=== PATIENT | male | born 1955 | race Caucasian/White ===

== ENCOUNTER 2019-04-25 19:17 | Inpatient (IN) | payer OTHER ==
[~2019-04-25] VITALS: Ht 154.9 cm; Wt 95.0 kg
[~2019-04-25 19:17] MED LIST: BP MEDS; DIAZ5TAB4 PO; FAMO-136 PO; OXYC-530 PO
[2019-04-25] MEDS ORDERED: IBUP100O27 PO (19:45)
[2019-04-25] MEDS ORDERED: LOSA50TA64 PO (19:45)
[2019-04-25] MEDS ORDERED: FAMO40TA76 PO (19:45)
[2019-04-25] MEDS ORDERED: SENN-106 PO (19:45)
[2019-04-25] MEDS ORDERED: BACL10TA PO (19:45)
[2019-04-25] MEDS ORDERED: TAMS-13 PO (19:45)
[2019-04-25 21:33] LABS: HEMATOCRIT 40.2 % (41-53); HEMOGLOBIN 13.8 g/dL (13.5-17.5); MEAN CORPUSCULAR HGB CONC 34.3 G/dL (31.0-37.0); MEAN CORPUSCULAR VOLUME 96 fL (80-100); PLATELET COUNT (AUTO) 166 K/uL (150-450); RED BLOOD CELL COUNT(AUTO) 4.18 MIL/uL (4.50-5.90)
[2019-04-25 21:45] LABS: CALCIUM, TOTAL 9.1 mg/dL (8.8-10.5); CREATININE 2.6 mg/dL (0.60-1.30); POTASSIUM 4.1 mmol/L (3.5-5.1)
[2019-04-25 22:09] LABS: ALBUMIN 2.2 g/dL (3.4-5.0); BILIRUBIN,TOTAL 1.3 mg/dL (0.1-1.0); TOTAL PROTEIN, SERUM 7.4 g/dL (6.4-8.2)
[2019-04-25 22:13] LABS: BAND NEUTROPHILS % (MANUAL) 31 % (0-5); LYMPHOCYTES % (MANUAL) 4 % (22-44); MONOCYTES % (MANUAL) 8 % (2-9); SEGMENTED NEUTROPHILS % 57 % (40-70)
[2019-04-25 22:25] LABS: INR 1.1 (0.9-1.1); PROTHROMBIN TIME 11.2 SEC (9.4-11.6)
[2019-04-25] MEDS ORDERED: PIPERACILLIN/TAZO 3.375 GM/D5W 50 ML IV ONE (22:30)
[2019-04-25] MEDS ORDERED: VANCOMYCIN HCL 1 GM/D5% WATER 200 ML IV ONE (22:30)
[2019-04-25 22:41] LABS: APPEARANCE,URINE CLOUDY (CLEAR); GLUCOSE, URINE (UA) NEGATIVE (NEGATIVE); KETONES,URINE NEGATIVE (NEGATIVE); LEUKOCYTE ESTERASE ,URINE NEGATIVE (NEGATIVE); NITRATE,URINE NEGATIVE (NEGATIVE); OCCULT BLOOD,URINE MODERATE (NEGATIVE); PH,URINE 5.5 (5.0-8.0); PROTEIN,URINE TRACE (NEGATIVE)
[2019-04-25 22:42] LABS: BILIRUBIN,URINE PRELIM. POSITIVE (NEGATIVE)
[2019-04-25 22:47] LABS: BACTERIA,URINE None Seen /HPF (None Seen); RBC,URINE 0-2 /HPF (0-2); SQUAMOUS EPITHELIAL CELL,UR Few /LPF (None Seen); WBC,URINE 0-2 /HPF (0-5)
[2019-04-25 22:49] LABS: RENAL EPITHELIAL CELLS,URINE Few /LPF (None Seen)
[2019-04-25] MEDS ORDERED: SODIUM CHLORIDE 0.9% 1,000 ML IV ONE (23:00)
[2019-04-25 23:01] LABS: AMPHET/METH SCREEN,URINE NEGATIVE (NEGATIVE); BARBITURATE SCREEN, URINE NEGATIVE (NEGATIVE); BENZODIAZEPINES SCREEN,URINE NEGATIVE (NEGATIVE); CANNABINOID SCREEN,URINE NEGATIVE (NEGATIVE); COCAINE SCREEN,URINE NEGATIVE (NEGATIVE); METHADONE SCREEN, URINE NEGATIVE (NEGATIVE); OPIATE SCREEN,URINE NEGATIVE (NEGATIVE)
[2019-04-25 23:02] LABS: PHENCYCLIDINE SCREEN,URINE NEGATIVE (NEGATIVE)
[2019-04-25] MEDS ORDERED: ONDANSETRON HCL 4 MG/2 ML VIAL IVP PRN (23:45)
[2019-04-25] MEDS ORDERED: BISACODYL 10 MG RECTAL RECTAL SUPPOSITORY PR PRN (23:45)
[2019-04-26] MEDS ORDERED: SODIUM CHLORIDE 0.45% 1,000 ML IV SCH
[2019-04-26 00:05] LABS: INFLUENZA TYPE A NEGATIVE FOR TYPE A (NEGATIVE); INFLUENZA TYPE B NEGATIVE FOR TYPE B (NEGATIVE)
[2019-04-26] MEDS ORDERED: VANCOMYCIN HCL 1 GM/D5% WATER 200 ML IV PRN (01:45)
[2019-04-26] MEDS ORDERED: VANCOMYCIN HCL 1 GM/D5% WATER 200 ML IV ONE (02:30)
[2019-04-26] MEDS ORDERED: SODIUM CHLORIDE 0.9% 0 ML IV ONE (02:55)
[2019-04-26 03:08] VITALS: BP 135/79
[2019-04-26] MEDS: PIPERACILLIN SODIUM/TAZOBACTAM 2.25 GM in DEXTROSE 5%-WATER 50 ML IV SCH ×3 (05:49→18:28)
[2019-04-26 07:04] LABS: CALCIUM, TOTAL 8.4 mg/dL (8.8-10.5); CREATININE 2.2 mg/dL (0.60-1.30); POTASSIUM 3.3 mmol/L (3.5-5.1)
[2019-04-26 08:13] VITALS: BP 106/62
[2019-04-26] MEDS: DOCUSATE SODIUM 100 MG CAPSULE PO SCH ×2 (09:40→20:45)
[2019-04-26] MEDS: FAMOTIDINE 20 MG TABLET PO SCH (09:40)
[2019-04-26] MEDS: HEPARIN SODIUM,PORCINE 5,000 UNITS/ML VIAL SQ SCH ×2 (09:40→20:45)
[2019-04-26] MEDS ORDERED: SODIUM CHLORIDE 0.45% 1,000 ML IV ONE (09:45)
[2019-04-26] MEDS ORDERED: POTASSIUM CHLORIDE 10% 40 MEQ/30 ML LIQUID UDCUP PO ONE (09:45)
[2019-04-26 11:29] VITALS: BP 130/73
[2019-04-26 15:20] VITALS: BP 139/70
[2019-04-26] MEDS: ACETAMINOPHEN 325 MG TABLET PO PRN (16:59)
[2019-04-26 19:13] VITALS: BP 124/72
[2019-04-27] VITALS (7 sets, daily range): BP systolic 116–144; BP diastolic 70–98
[2019-04-27] MEDS: ACETAMINOPHEN 325 MG TABLET PO PRN ×4 (00:03→20:16)
[2019-04-27] MEDS: PIPERACILLIN SODIUM/TAZOBACTAM 2.25 GM in DEXTROSE 5%-WATER 50 ML IV SCH ×2 (00:34→05:38)
[2019-04-27] MEDS ORDERED: SODIUM CHLORIDE 0.9% 250 ML IV ONE (04:41)
[2019-04-27 07:08] LABS: HEMATOCRIT 37.7 % (41-53); HEMOGLOBIN 12.9 g/dL (13.5-17.5); MEAN CORPUSCULAR HEMOGLOBIN 32.9 pg (26.0-34.0); MEAN CORPUSCULAR HGB CONC 34.1 G/dL (31.0-37.0); MEAN CORPUSCULAR VOLUME 97 fL (80-100); PLATELET COUNT (AUTO) 174 K/uL (150-450); RED BLOOD CELL COUNT(AUTO) 3.91 MIL/uL (4.50-5.90); RED CELL DISTRIBUTION WIDTH 13.9 % (11.5-14.5)
[2019-04-27 07:14] LABS: CALCIUM, TOTAL 8.4 mg/dL (8.8-10.5); CREATININE 1.81 mg/dL (0.60-1.30); POTASSIUM 4.3 mmol/L (3.5-5.1)
[2019-04-27] MEDS: VANCOMYCIN HCL 1.25 GM in DEXTROSE 5%-WATER 250 ML IV SCH (08:14)
[2019-04-27] MEDS: FAMOTIDINE 20 MG TABLET PO SCH (08:15)
[2019-04-27] MEDS: HEPARIN SODIUM,PORCINE 5,000 UNITS/ML VIAL SQ SCH ×2 (08:15→20:15)
[2019-04-27] MEDS: DOCUSATE SODIUM 100 MG CAPSULE PO SCH ×2 (08:15→20:15)
[2019-04-27 08:40] LABS: BAND NEUTROPHILS % (MANUAL) 15 % (0-5); LYMPHOCYTES % (MANUAL) 13 % (22-44); MONOCYTES % (MANUAL) 6 % (2-9); SEGMENTED NEUTROPHILS % 66 % (40-70)
[2019-04-27] MEDS ORDERED: DEXTROSE 5%-WATER 500 ML IV ONE (10:15)
[2019-04-27] MEDS: PIPERACILLIN/TAZO 3.375 GM/D5W 50 ML IV SCH ×2 (13:19→18:25)
[2019-04-28] MEDS: PIPERACILLIN/TAZO 3.375 GM/D5W 50 ML IV SCH ×5 (01:06→18:00)
[2019-04-28 05:12] VITALS: BP 150/90
[2019-04-28 07:53] LABS: CALCIUM, TOTAL 7.8 mg/dL (8.8-10.5); CREATININE 1.45 mg/dL (0.60-1.30); POTASSIUM 3.5 mmol/L (3.5-5.1)
[2019-04-28 07:54] LABS: VANCOMYCIN,RANDOM 8.6 mcg/mL (25.0-50.0)
[2019-04-28 08:06] VITALS: BP 145/105
[2019-04-28] MEDS: VANCOMYCIN HCL 1.25 GM in DEXTROSE 5%-WATER 250 ML IV SCH (09:29)
[2019-04-28] MEDS: HEPARIN SODIUM,PORCINE 5,000 UNITS/ML VIAL SQ SCH ×2 (09:29→22:09)
[2019-04-28] MEDS: FAMOTIDINE 20 MG TABLET PO SCH (09:29)
[2019-04-28] MEDS: DOCUSATE SODIUM 100 MG CAPSULE PO SCH ×2 (09:29→21:00)
[2019-04-28] MEDS ORDERED: BARIUM SULFATE 0.1% SUSPENSION 450 ML BOTTLE ONE (11:41)
[2019-04-28 11:48] VITALS: BP 125/76
[2019-04-28] MEDS ORDERED: SODIUM CHLORIDE 0.9% 100 ML ONE (14:23)
[2019-04-28] MEDS ORDERED: IOVERSOL 350 MG/ML 150 ML VIAL ONE (14:23)
[2019-04-28] MEDS: DOXYCYCLINE HYCLATE 100 MG in DEXTROSE 5%-WATER 100 ML IV SCH (16:30)
[2019-04-28 16:33] VITALS: BP 146/60
[2019-04-28 20:13] VITALS: BP 153/86
[2019-04-28] MEDS: VANCOMYCIN HCL 1 GM/D5% WATER 200 ML IV SCH (21:41)
[2019-04-28] MEDS: ACETAMINOPHEN 325 MG TABLET PO PRN (22:09)
[2019-04-29 00:01] VITALS: BP 138/82
[2019-04-29] MEDS: PIPERACILLIN/TAZO 3.375 GM/D5W 50 ML IV SCH ×5 (01:05→23:28)
[2019-04-29 04:30] VITALS: BP 121/71
[2019-04-29] MEDS: DOXYCYCLINE HYCLATE 100 MG in DEXTROSE 5%-WATER 100 ML IV SCH (04:58)
[2019-04-29 07:35] VITALS: BP 154/78
[2019-04-29] MEDS: VANCOMYCIN HCL 1 GM/D5% WATER 200 ML IV SCH (07:45)
[2019-04-29 08:09] LABS: ALBUMIN 1.5 g/dL (3.4-5.0); BILIRUBIN,TOTAL 1.6 mg/dL (0.1-1.0); CALCIUM, TOTAL 7.7 mg/dL (8.8-10.5); CREATININE 1.32 mg/dL (0.60-1.30); POTASSIUM 4.3 mmol/L (3.5-5.1); TOTAL PROTEIN, SERUM 7.2 g/dL (6.4-8.2)
[2019-04-29] MEDS: DOCUSATE SODIUM 100 MG CAPSULE PO SCH ×2 (08:15→21:00)
[2019-04-29] MEDS: FAMOTIDINE 20 MG TABLET PO SCH (08:15)
[2019-04-29] MEDS: HEPARIN SODIUM,PORCINE 5,000 UNITS/ML VIAL SQ SCH ×2 (08:17→21:00)
[2019-04-29] MEDS ORDERED: SODIUM CHLORIDE 0.9% 500 ML IV ONE (10:31)
[2019-04-29] MEDS: ACETAMINOPHEN 325 MG TABLET PO PRN (11:25)
[2019-04-29 12:15] VITALS: BP 139/56
[2019-04-29 15:45] VITALS: BP 128/72
[2019-04-29] MEDS: MetroNIDAZOLE 500 MG TABLET PO SCH (16:09)
[2019-04-29 20:28] VITALS: BP 117/71
[2019-04-30 04:15] VITALS: BP 138/79
[2019-04-30] MEDS: ACETAMINOPHEN 325 MG TABLET PO PRN ×4 (04:31→19:53)
[2019-04-30] MEDS: PIPERACILLIN/TAZO 3.375 GM/D5W 50 ML IV SCH ×3 (05:26→17:41)
[2019-04-30 07:43] VITALS: BP 135/73
[2019-04-30 07:58] LABS: BASOPHILS % (AUTO) 0.2 % (0.0-2.0); EOSINOPHILS % (AUTO) 0.8 % (1.0-6.0); HEMATOCRIT 34.2 % (41-53); HEMOGLOBIN 11.6 g/dL (13.5-17.5); LYMPHOCYTES # (AUTO) 1.4 K/uL (1.0-4.8); LYMPHOCYTES % (AUTO) 7.9 % (22.0-44.0); MEAN CORPUSCULAR HEMOGLOBIN 32.7 pg (26.0-34.0); MEAN CORPUSCULAR VOLUME 96 fL (80-100); MONOCYTES # (AUTO) 1.3 K/uL (0.1-1.0); NEUTROPHILS # (AUTO) 15.2 K/uL (1.8-7.7); NEUTROPHILS % (AUTO) 84.1 % (40.0-70.0); PLATELET COUNT (AUTO) 155 K/uL (150-450); RED BLOOD CELL COUNT(AUTO) 3.56 MIL/uL (4.50-5.90); RED CELL DISTRIBUTION WIDTH 13.7 % (11.5-14.5)
[2019-04-30 08:01] LABS: CALCIUM, TOTAL 7.1 mg/dL (8.8-10.5); CREATININE 1.3 mg/dL (0.60-1.30); POTASSIUM 4.1 mmol/L (3.5-5.1)
[2019-04-30] MEDS: MetroNIDAZOLE 500 MG TABLET PO SCH ×4 (08:44→20:46)
[2019-04-30] MEDS: FAMOTIDINE 20 MG TABLET PO SCH (08:44)
[2019-04-30] MEDS: DOCUSATE SODIUM 100 MG CAPSULE PO SCH ×2 (08:44→20:46)
[2019-04-30] MEDS: HEPARIN SODIUM,PORCINE 5,000 UNITS/ML VIAL SQ SCH ×3 (08:45→21:00)
[2019-04-30 11:38] VITALS: BP 143/88
[2019-04-30 15:23] VITALS: BP 142/68
[2019-04-30 19:40] VITALS: BP 138/72
[2019-04-30 23:36] VITALS: BP 131/77
[2019-05-01] MEDS: ACETAMINOPHEN 325 MG TABLET PO PRN ×2 (00:11→13:59)
[2019-05-01] MEDS: PIPERACILLIN/TAZO 3.375 GM/D5W 50 ML IV SCH ×5 (00:12→23:46)
[2019-05-01 04:40] VITALS: BP 141/71
[2019-05-01] MEDS: MORPHINE SULFATE 2 MG/ML SYRINGE IVP PRN ×4 (05:49→18:53)
[2019-05-01 07:51] VITALS: BP 126/71
[2019-05-01] MEDS: HEPARIN SODIUM,PORCINE 5,000 UNITS/ML VIAL SQ SCH ×2 (09:00→20:57)
[2019-05-01 09:27] LABS: BASOPHILS % (AUTO) 0.2 % (0.0-2.0); EOSINOPHILS % (AUTO) 0.8 % (1.0-6.0); HEMATOCRIT 36.2 % (41-53); HEMOGLOBIN 12.1 g/dL (13.5-17.5); LYMPHOCYTES # (AUTO) 1.3 K/uL (1.0-4.8); LYMPHOCYTES % (AUTO) 7.6 % (22.0-44.0); MEAN CORPUSCULAR HEMOGLOBIN 32.3 pg (26.0-34.0); MEAN CORPUSCULAR HGB CONC 33.4 G/dL (31.0-37.0); MEAN CORPUSCULAR VOLUME 97 fL (80-100); MONOCYTES # (AUTO) 1.2 K/uL (0.1-1.0); MONOCYTES % (AUTO) 6.5 % (2.0-9.0); NEUTROPHILS # (AUTO) 15.1 K/uL (1.8-7.7); NEUTROPHILS % (AUTO) 84.9 % (40.0-70.0); PLATELET COUNT (AUTO) 174 K/uL (150-450); RED BLOOD CELL COUNT(AUTO) 3.73 MIL/uL (4.50-5.90); RED CELL DISTRIBUTION WIDTH 13.8 % (11.5-14.5)
[2019-05-01 09:32] LABS: INR 1.1 (0.9-1.1); PROTHROMBIN TIME 11.6 SEC (9.4-11.6)
[2019-05-01] MEDS: DOCUSATE SODIUM 100 MG CAPSULE PO SCH ×2 (09:36→20:58)
[2019-05-01] MEDS: FAMOTIDINE 20 MG TABLET PO SCH (09:36)
[2019-05-01] MEDS: MetroNIDAZOLE 500 MG TABLET PO SCH ×3 (09:36→20:58)
[2019-05-01 09:40] LABS: ANION GAP 7 mmol/L (8-16); CALCIUM, TOTAL 7.8 mg/dL (8.8-10.5); CARBON DIOXIDE 29 mmol/L (22-29); CHLORIDE 107 mmol/L (98-107); CREATININE 1.16 mg/dL (0.60-1.30); GLOMERULAR FILTR. RATE CALC > 60 mL/min (>60); GLUCOSE,RANDOM 94 mg/dL (70-110); POTASSIUM 4.4 mmol/L (3.5-5.1); SODIUM SERUM 143 mmol/L (136-145); UREA NITROGEN, BLOOD 19 mg/dL (7-18)
[2019-05-01 11:10] VITALS: BP 133/73
[2019-05-01 15:33] VITALS: BP 139/78
[2019-05-01 19:55] VITALS: BP 117/75
[2019-05-01] MEDS ORDERED: 0.9% SODIUM CHLORIDE 5 ML NEB SOLUTION NEB ONE (20:36)
[2019-05-01] MEDS: ALBUTEROL SULFATE 2.5 MG/0.5 ML NEB SOLUTION NEB PRN (20:37)
[2019-05-01] MEDS ORDERED: SODIUM CHLORIDE 0.9% 100 ML ONE (23:47)
[2019-05-02] VITALS (10 sets, daily range): BP systolic 119–141; BP diastolic 53–83
[2019-05-02] MEDS: ACETAMINOPHEN 325 MG TABLET PO PRN ×3 (00:20→15:49)
[2019-05-02 01:23] LABS: APPEARANCE,URINE CLEAR (CLEAR); GLUCOSE, URINE (UA) NEGATIVE (NEGATIVE); KETONES,URINE NEGATIVE (NEGATIVE); LEUKOCYTE ESTERASE ,URINE SMALL (NEGATIVE); NITRATE,URINE NEGATIVE (NEGATIVE); OCCULT BLOOD,URINE LARGE (NEGATIVE); PROTEIN,URINE TRACE (NEGATIVE)
[2019-05-02 01:27] LABS: BILIRUBIN,URINE PRELIM. POSITIVE (NEGATIVE)
[2019-05-02 01:32] LABS: BACTERIA,URINE None Seen /HPF (None Seen); RBC,URINE 51-100 /HPF (0-2); SQUAMOUS EPITHELIAL CELL,UR Rare /LPF (None Seen)
[2019-05-02] MEDS: MORPHINE SULFATE 2 MG/ML SYRINGE IVP PRN ×3 (02:47→21:23)
[2019-05-02] MEDS ORDERED: MORPHINE SULFATE 2 MG/ML SYRINGE IVP ONE (05:30)
[2019-05-02] MEDS: PIPERACILLIN/TAZO 3.375 GM/D5W 50 ML IV SCH ×3 (06:07→17:52)
[2019-05-02] MEDS: MetroNIDAZOLE 500 MG TABLET PO SCH ×3 (07:43→21:12)
[2019-05-02] MEDS: DOCUSATE SODIUM 100 MG CAPSULE PO SCH ×2 (07:43→21:13)
[2019-05-02] MEDS: HEPARIN SODIUM,PORCINE 5,000 UNITS/ML VIAL SQ SCH ×2 (07:43→21:13)
[2019-05-02] MEDS: FAMOTIDINE 20 MG TABLET PO SCH (07:43)
[2019-05-02] MEDS ORDERED: LIDOCAINE/PF 1% 30 ML VIAL ONE (09:04)
[2019-05-02] MEDS ORDERED: PROPOFOL 1000 MG/ISO-OSM 100 ML IV ONE (09:22)
[2019-05-02] MEDS ORDERED: RINGERS SOLUTION,LACTATED 1,000 ML IV ONE (09:37)
[2019-05-02] MEDS ORDERED: RINGERS SOLUTION,LACTATED 500 ML IV ONE (11:57)
[2019-05-02] MEDS ORDERED: 0.9% SODIUM CHLORIDE 5 ML NEB SOLUTION NEB ONE (14:41)
[2019-05-02] MEDS: ALBUTEROL SULFATE 2.5 MG/0.5 ML NEB SOLUTION NEB PRN (14:46)
[2019-05-02] MEDS: OxyCODONE HCL/ACETAMINOPHEN 5-325 MG TABLET PO PRN (14:58)
[2019-05-03] MEDS: PIPERACILLIN/TAZO 3.375 GM/D5W 50 ML IV SCH ×4 (00:07→18:13)
[2019-05-03] MEDS ORDERED: SODIUM CHLORIDE 0.9% 100 ML ONE (00:09)
[2019-05-03] MEDS: OxyCODONE HCL/ACETAMINOPHEN 5-325 MG TABLET PO PRN ×2 (03:53→18:13)
[2019-05-03 05:00] VITALS: BP 129/73
[2019-05-03] MEDS ORDERED: NEOSTIGMINE METHYLSULFATE 1 MG/ML 10 ML VIAL IVP ONE (05:32)
[2019-05-03] MEDS ORDERED: LIDOCAINE/PF 2% 5 ML VIAL IM ONE (05:32)
[2019-05-03] MEDS ORDERED: PROPOFOL 1% 20 ML VIAL IVP ONE (05:32)
[2019-05-03] MEDS ORDERED: ONDANSETRON HCL 4 MG/2 ML VIAL IVP ONE (05:32)
[2019-05-03] MEDS ORDERED: GLYCOPYRROLATE 0.2 MG/ML VIAL IM ONE (05:32)
[2019-05-03] MEDS ORDERED: KETAMINE HCL 50 MG/ML 10 ML VIAL IVP ONE (05:38)
[2019-05-03] MEDS ORDERED: FentaNYL CITRATE-PF 100 MCG/2 ML VIAL IVP ONE (05:38)
[2019-05-03] MEDS ORDERED: MIDAZOLAM HCL 2 MG/2 ML VIAL IVP ONE (05:38)
[2019-05-03 08:17] VITALS: BP 122/82
[2019-05-03] MEDS: MetroNIDAZOLE 500 MG TABLET PO SCH ×3 (08:51→20:42)
[2019-05-03] MEDS: HEPARIN SODIUM,PORCINE 5,000 UNITS/ML VIAL SQ SCH ×2 (08:51→20:42)
[2019-05-03] MEDS: DOCUSATE SODIUM 100 MG CAPSULE PO SCH ×2 (08:51→20:42)
[2019-05-03] MEDS: FAMOTIDINE 20 MG TABLET PO SCH (08:51)
[2019-05-03] MEDS: MORPHINE SULFATE 2 MG/ML SYRINGE IVP PRN (08:55)
[2019-05-03 11:02] VITALS: BP 135/73
[2019-05-03 13:07] LABS: LEGIONELLA PNEUMO AG URINE Negative (Negative); ORGANISM ID Not indicated.; S PNEUMO SOURCE Urine; STREP PNEUMONIAE AG URINE Negative (Negative); STREP.PNEUMO BODY FLUID CULT. Not Indicated
[2019-05-03 16:00] VITALS: BP 136/80
[2019-05-03 19:50] VITALS: BP 142/86
[2019-05-03 23:45] VITALS: BP 136/76
[2019-05-04] MEDS: PIPERACILLIN/TAZO 3.375 GM/D5W 50 ML IV SCH ×3 (00:13→12:24)
[2019-05-04 04:40] VITALS: BP 135/66
[2019-05-04 07:11] VITALS: BP 109/74
[2019-05-04] MEDS: HEPARIN SODIUM,PORCINE 5,000 UNITS/ML VIAL SQ SCH ×2 (08:37→21:55)
[2019-05-04] MEDS: FAMOTIDINE 20 MG TABLET PO SCH (08:38)
[2019-05-04] MEDS: MetroNIDAZOLE 500 MG TABLET PO SCH ×3 (08:38→21:55)
[2019-05-04] MEDS: DOCUSATE SODIUM 100 MG CAPSULE PO SCH ×2 (08:39→21:55)
[2019-05-04] MEDS: OxyCODONE HCL/ACETAMINOPHEN 5-325 MG TABLET PO PRN ×2 (08:39→17:49)
[2019-05-04 11:51] VITALS: BP 104/72
[2019-05-04 15:19] VITALS: BP 122/65
[2019-05-04] MEDS: CefTRIAXone SODIUM 2 GM in DEXTROSE 5%-WATER 50 ML IV SCH (17:47)
[2019-05-04] MEDS ORDERED: SODIUM CHLORIDE 0.9% 250 ML IV ONE (17:54)
[2019-05-04 19:55] VITALS: BP 118/63
[2019-05-05 02:06] VITALS: BP_SYST 124; BP_SYST 200; BP_DIAS 78
[2019-05-05 05:10] VITALS: BP 133/73
[2019-05-05 07:43] VITALS: BP 136/69
[2019-05-05] MEDS ORDERED: IOVERSOL 350 MG/ML 100 ML VIAL ONE (07:48)
[2019-05-05] MEDS ORDERED: SODIUM CHLORIDE 0.9% 100 ML ONE (07:48)
[2019-05-05] MEDS: DOCUSATE SODIUM 100 MG CAPSULE PO SCH ×2 (09:12→21:00)
[2019-05-05] MEDS: MetroNIDAZOLE 500 MG TABLET PO SCH ×3 (09:12→21:00)
[2019-05-05] MEDS: FAMOTIDINE 20 MG TABLET PO SCH (09:12)
[2019-05-05] MEDS: HEPARIN SODIUM,PORCINE 5,000 UNITS/ML VIAL SQ SCH ×2 (09:12→21:00)
[2019-05-05 11:41] VITALS: BP 129/67
[2019-05-05 16:11] VITALS: BP 145/65
[2019-05-05] MEDS: CefTRIAXone SODIUM 2 GM in DEXTROSE 5%-WATER 50 ML IV SCH (17:41)
[2019-05-05 19:56] VITALS: BP 132/65
[2019-05-06 00:03] VITALS: BP 148/85
[2019-05-06 05:08] VITALS: BP 150/70
[2019-05-06 07:07] VITALS: BP 135/70
[2019-05-06] MEDS: FAMOTIDINE 20 MG TABLET PO SCH (08:02)
[2019-05-06] MEDS: MetroNIDAZOLE 500 MG TABLET PO SCH ×3 (08:03→20:52)
[2019-05-06] MEDS: HEPARIN SODIUM,PORCINE 5,000 UNITS/ML VIAL SQ SCH ×2 (08:03→20:52)
[2019-05-06] MEDS: DOCUSATE SODIUM 100 MG CAPSULE PO SCH ×2 (08:04→20:52)
[2019-05-06 11:33] VITALS: BP 139/59
[2019-05-06 16:41] VITALS: BP 136/71
[2019-05-06] MEDS: CefTRIAXone SODIUM 2 GM in DEXTROSE 5%-WATER 50 ML IV SCH (18:08)
[2019-05-06 18:42] LABS: BASOPHILS % (AUTO) 0.8 % (0.0-2.0); EOSINOPHILS % (AUTO) 2.1 % (1.0-6.0); HEMOGLOBIN 10.7 g/dL (13.5-17.5); LYMPHOCYTES # (AUTO) 1.2 K/uL (1.0-4.8); LYMPHOCYTES % (AUTO) 14.8 % (22.0-44.0); MEAN CORPUSCULAR HEMOGLOBIN 32.3 pg (26.0-34.0); MEAN CORPUSCULAR HGB CONC 33.6 G/dL (31.0-37.0); MEAN CORPUSCULAR VOLUME 96 fL (80-100); MONOCYTES # (AUTO) 0.7 K/uL (0.1-1.0); MONOCYTES % (AUTO) 9.1 % (2.0-9.0); NEUTROPHILS # (AUTO) 5.7 K/uL (1.8-7.7); NEUTROPHILS % (AUTO) 73.2 % (40.0-70.0); PLATELET COUNT (AUTO) 469 K/uL (150-450); RED BLOOD CELL COUNT(AUTO) 3.32 MIL/uL (4.50-5.90); RED CELL DISTRIBUTION WIDTH 13.8 % (11.5-14.5)
[2019-05-06 19:19] LABS: ALANINE AMINOTRANSFERASE 19 U/L (12-78); ALBUMIN 1.6 g/dL (3.4-5.0); ALKALINE PHOSPHATASE 362 U/L (46-116); ANION GAP 3 mmol/L (8-16); ASPARTATE AMINOTRANSFERASE 27 U/L (15-37); BILIRUBIN,TOTAL 0.4 mg/dL (0.1-1.0); CARBON DIOXIDE 32 mmol/L (22-29); CHLORIDE 104 mmol/L (98-107); CREATININE 0.93 mg/dL (0.60-1.30); GLOMERULAR FILTR. RATE CALC > 60 mL/min (>60); GLUCOSE,RANDOM 118 mg/dL (70-110); POTASSIUM 4.5 mmol/L (3.5-5.1); SODIUM SERUM 139 mmol/L (136-145); TOTAL PROTEIN, SERUM 7.2 g/dL (6.4-8.2); UREA NITROGEN, BLOOD 18 mg/dL (7-18)
[2019-05-06 20:15] VITALS: BP 152/70
[2019-05-07] VITALS (7 sets, daily range): BP systolic 106–134; BP diastolic 59–79
[2019-05-07] MEDS: MetroNIDAZOLE 500 MG TABLET PO SCH ×3 (08:28→20:57)
[2019-05-07] MEDS: DOCUSATE SODIUM 100 MG CAPSULE PO SCH ×2 (08:28→20:59)
[2019-05-07] MEDS: FAMOTIDINE 20 MG TABLET PO SCH (08:28)
[2019-05-07] MEDS: HEPARIN SODIUM,PORCINE 5,000 UNITS/ML VIAL SQ SCH ×2 (08:28→20:58)
[2019-05-07 11:31] LABS: BASOPHILS % (AUTO) 1.2 % (0.0-2.0); EOSINOPHILS % (AUTO) 1.8 % (1.0-6.0); HEMATOCRIT 26.9 % (41-53); LYMPHOCYTES # (AUTO) 1.5 K/uL (1.0-4.8); LYMPHOCYTES % (AUTO) 15.1 % (22.0-44.0); MEAN CORPUSCULAR HEMOGLOBIN 32.6 pg (26.0-34.0); MEAN CORPUSCULAR HGB CONC 33.5 G/dL (31.0-37.0); MEAN CORPUSCULAR VOLUME 97 fL (80-100); MONOCYTES % (AUTO) 9.9 % (2.0-9.0); NEUTROPHILS # (AUTO) 7.1 K/uL (1.8-7.7); PLATELET COUNT (AUTO) 617 K/uL (150-450); RED BLOOD CELL COUNT(AUTO) 2.76 MIL/uL (4.50-5.90); RED CELL DISTRIBUTION WIDTH 13.8 % (11.5-14.5)
[2019-05-07 11:41] LABS: ALANINE AMINOTRANSFERASE 18 U/L (12-78); ALBUMIN 1.4 g/dL (3.4-5.0); ALKALINE PHOSPHATASE 280 U/L (46-116); ANION GAP 1 mmol/L (8-16); ASPARTATE AMINOTRANSFERASE 21 U/L (15-37); BILIRUBIN,TOTAL 0.5 mg/dL (0.1-1.0); CALCIUM, TOTAL 7.5 mg/dL (8.8-10.5); CARBON DIOXIDE 32 mmol/L (22-29); CHLORIDE 110 mmol/L (98-107); CREATININE 0.95 mg/dL (0.60-1.30); GLOMERULAR FILTR. RATE CALC > 60 mL/min (>60); GLUCOSE,RANDOM 137 mg/dL (70-110); POTASSIUM 4.9 mmol/L (3.5-5.1); SODIUM SERUM 143 mmol/L (136-145); TOTAL PROTEIN, SERUM 6.3 g/dL (6.4-8.2); UREA NITROGEN, BLOOD 30 mg/dL (7-18)
[2019-05-07 14:27] LABS: HEMATOCRIT 23.7 % (41-53); HEMOGLOBIN 8.3 g/dL (13.5-17.5)
[2019-05-07] MEDS ORDERED: PANTOPRAZOLE SODIUM 40 MG/VIAL IVP SCH (14:45)
[2019-05-07 15:51] LABS: C.DIFF GDH ANTIGEN, Stool Negative (Negative); C.DIFF TOXINS A&B, Stool Negative (Negative)
[2019-05-07] MEDS: CefTRIAXone SODIUM 2 GM in DEXTROSE 5%-WATER 50 ML IV SCH (17:14)
[2019-05-07 18:17] LABS: HEMATOCRIT 22.9 % (41-53); HEMOGLOBIN 7.8 g/dL (13.5-17.5)
[2019-05-07] MEDS ORDERED: PANTOPRAZOLE SODIUM 40 MG/VIAL IVP ONE (18:30)
[2019-05-07] MEDS: PANTOPRAZOLE SODIUM 80 MG in SODIUM CHLORIDE 0.9% 100 ML IV SCH (20:57)
[2019-05-07] MEDS: ACETAMINOPHEN 325 MG TABLET PO PRN (20:58)
[2019-05-08] VITALS (8 sets, daily range): BP systolic 100–131; BP diastolic 59–67
[2019-05-08 00:48] LABS: HEMATOCRIT 21.9 % (41-53); HEMOGLOBIN 7.5 g/dL (13.5-17.5)
[2019-05-08] MEDS: PANTOPRAZOLE SODIUM 80 MG in SODIUM CHLORIDE 0.9% 100 ML IV SCH (05:52)
[2019-05-08 07:47] LABS: ALANINE AMINOTRANSFERASE 16 U/L (12-78); ALBUMIN 1.5 g/dL (3.4-5.0); ALKALINE PHOSPHATASE 213 U/L (46-116); ANION GAP 2 mmol/L (8-16); ASPARTATE AMINOTRANSFERASE 15 U/L (15-37); BILIRUBIN,TOTAL 0.4 mg/dL (0.1-1.0); CALCIUM, TOTAL 7.8 mg/dL (8.8-10.5); CARBON DIOXIDE 32 mmol/L (22-29); CHLORIDE 112 mmol/L (98-107); CREATININE 1.12 mg/dL (0.60-1.30); GLOMERULAR FILTR. RATE CALC > 60 mL/min (>60); GLUCOSE,RANDOM 124 mg/dL (70-110); POTASSIUM 4.3 mmol/L (3.5-5.1); SODIUM SERUM 146 mmol/L (136-145); TOTAL PROTEIN, SERUM 6.2 g/dL (6.4-8.2); UREA NITROGEN, BLOOD 35 mg/dL (7-18)
[2019-05-08 07:52] LABS: BASOPHILS % (AUTO) 1.3 % (0.0-2.0); EOSINOPHILS % (AUTO) 2.2 % (1.0-6.0); HEMATOCRIT 21.4 % (41-53); HEMOGLOBIN 7.3 g/dL (13.5-17.5); LYMPHOCYTES # (AUTO) 2.5 K/uL (1.0-4.8); LYMPHOCYTES % (AUTO) 25.2 % (22.0-44.0); MEAN CORPUSCULAR HEMOGLOBIN 33.7 pg (26.0-34.0); MEAN CORPUSCULAR HGB CONC 34.3 G/dL (31.0-37.0); MEAN CORPUSCULAR VOLUME 98 fL (80-100); MONOCYTES % (AUTO) 10.1 % (2.0-9.0); NEUTROPHILS % (AUTO) 61.2 % (40.0-70.0); PLATELET COUNT (AUTO) 503 K/uL (150-450); RED BLOOD CELL COUNT(AUTO) 2.18 MIL/uL (4.50-5.90); RED CELL DISTRIBUTION WIDTH 14.1 % (11.5-14.5)
[2019-05-08] MEDS: MetroNIDAZOLE 500 MG TABLET PO SCH ×3 (08:03→21:26)
[2019-05-08] MEDS: DOCUSATE SODIUM 100 MG CAPSULE PO SCH ×2 (08:04→21:00)
[2019-05-08 10:20] LABS: HEMATOCRIT 20.4 % (41-53)
[2019-05-08] MEDS ORDERED: SODIUM CHLORIDE 0.9% 1,000 ML ONE (11:03)
[2019-05-08] MEDS ORDERED: SODIUM CHLORIDE 0.9% 1,000 ML IV ONE (11:15)
[2019-05-08] MEDS ORDERED: LIDOCAINE/PF 2% 5 ML VIAL INJ ONE (12:00)
[2019-05-08] MEDS ORDERED: PROPOFOL 1% 20 ML VIAL IVP ONE (12:00)
[2019-05-08 15:56] LABS: HEMATOCRIT 20.4 % (41-53); HEMOGLOBIN 6.9 g/dL (13.5-17.5)
[2019-05-08] MEDS ORDERED: SODIUM CHLORIDE 0.9% 250 ML IV ONE (17:40)
[2019-05-08] MEDS: CefTRIAXone SODIUM 2 GM in DEXTROSE 5%-WATER 50 ML IV SCH (18:06)
[2019-05-08 19:48] LABS: HEMATOCRIT 19.3 % (41-53); HEMOGLOBIN 6.4 g/dL (13.5-17.5)
[2019-05-08] MEDS: PANTOPRAZOLE SODIUM 40 MG/VIAL IVP SCH (21:26)
[2019-05-08] MEDS ORDERED: SODIUM CHLORIDE 0.9% 500 ML IV ONE (22:41)
[2019-05-09] VITALS (14 sets, daily range): BP systolic 107–130; BP diastolic 51–65
[2019-05-09 02:39] LABS: HEMOGLOBIN 7.1 g/dL (13.5-17.5)
[2019-05-09 02:45] LABS: HEMATOCRIT 20.8 % (41-53)
[2019-05-09 06:41] LABS: BASOPHILS % (AUTO) 1.4 % (0.0-2.0); EOSINOPHILS % (AUTO) 2.6 % (1.0-6.0); HEMATOCRIT 24.5 % (41-53); HEMOGLOBIN 8.4 g/dL (13.5-17.5); LYMPHOCYTES # (AUTO) 1.9 K/uL (1.0-4.8); LYMPHOCYTES % (AUTO) 21.2 % (22.0-44.0); MEAN CORPUSCULAR HEMOGLOBIN 32.2 pg (26.0-34.0); MEAN CORPUSCULAR HGB CONC 34.5 G/dL (31.0-37.0); MEAN CORPUSCULAR VOLUME 93 fL (80-100); MONOCYTES # (AUTO) 0.7 K/uL (0.1-1.0); MONOCYTES % (AUTO) 7.8 % (2.0-9.0); NEUTROPHILS # (AUTO) 6.1 K/uL (1.8-7.7); PLATELET COUNT (AUTO) 378 K/uL (150-450); RED BLOOD CELL COUNT(AUTO) 2.62 MIL/uL (4.50-5.90); RED CELL DISTRIBUTION WIDTH 17.2 % (11.5-14.5)
[2019-05-09 06:55] LABS: ALANINE AMINOTRANSFERASE 13 U/L (12-78); ALBUMIN 1.6 g/dL (3.4-5.0); ALKALINE PHOSPHATASE 180 U/L (46-116); ANION GAP 3 mmol/L (8-16); ASPARTATE AMINOTRANSFERASE 19 U/L (15-37); BILIRUBIN,TOTAL 0.6 mg/dL (0.1-1.0); CALCIUM, TOTAL 7.7 mg/dL (8.8-10.5); CARBON DIOXIDE 30 mmol/L (22-29); CHLORIDE 112 mmol/L (98-107); CREATININE 1.05 mg/dL (0.60-1.30); GLOMERULAR FILTR. RATE CALC > 60 mL/min (>60); GLUCOSE,RANDOM 105 mg/dL (70-110); POTASSIUM 4.4 mmol/L (3.5-5.1); SODIUM SERUM 145 mmol/L (136-145); TOTAL PROTEIN, SERUM 6.1 g/dL (6.4-8.2); UREA NITROGEN, BLOOD 23 mg/dL (7-18)
[2019-05-09 07:06] LABS: INR 1.2 (0.9-1.1); PROTHROMBIN TIME 12.4 SEC (9.4-11.6)
[2019-05-09] MEDS ORDERED: IOVERSOL 350 MG/ML 150 ML VIAL ONE (08:06)
[2019-05-09] MEDS ORDERED: SODIUM CHLORIDE 0.9% 100 ML ONE (08:06)
[2019-05-09] MEDS: DOCUSATE SODIUM 100 MG CAPSULE PO SCH ×2 (08:54→20:28)
[2019-05-09] MEDS: MetroNIDAZOLE 500 MG TABLET PO SCH ×3 (08:54→20:27)
[2019-05-09] MEDS: PANTOPRAZOLE SODIUM 40 MG/VIAL IVP SCH ×2 (08:54→20:29)
[2019-05-09] MEDS: CefTRIAXone SODIUM 2 GM in DEXTROSE 5%-WATER 50 ML IV SCH (18:00)
[2019-05-10] VITALS (7 sets, daily range): BP systolic 107–146; BP diastolic 57–69
[2019-05-10] MEDS: DOCUSATE SODIUM 100 MG CAPSULE PO SCH ×2 (07:43→20:21)
[2019-05-10] MEDS: PANTOPRAZOLE SODIUM 40 MG/VIAL IVP SCH ×2 (09:02→20:23)
[2019-05-10] MEDS: MetroNIDAZOLE 500 MG TABLET PO SCH ×3 (09:02→20:23)
[2019-05-10] MEDS ORDERED: CEFX1I IV (16:38)
[2019-05-10] MEDS ORDERED: METR500 PO (16:39)
[2019-05-10] MEDS: CefTRIAXone SODIUM 2 GM in DEXTROSE 5%-WATER 50 ML IV SCH (17:38)
[2019-05-11 05:11] VITALS: BP 107/61
[2019-05-11] MEDS: MetroNIDAZOLE 500 MG TABLET PO SCH ×3 (08:00→20:36)
[2019-05-11] MEDS: PANTOPRAZOLE SODIUM 40 MG/VIAL IVP SCH ×2 (08:03→20:35)
[2019-05-11] MEDS: DOCUSATE SODIUM 100 MG CAPSULE PO SCH ×2 (08:04→20:37)
[2019-05-11 08:21] VITALS: BP 119/69
[2019-05-11 12:15] VITALS: BP 138/67
[2019-05-11 15:16] VITALS: BP 137/62
[2019-05-11] MEDS: CefTRIAXone SODIUM 2 GM in DEXTROSE 5%-WATER 50 ML IV SCH (17:01)
[2019-05-11 19:50] VITALS: BP 135/68
[2019-05-11 23:45] VITALS: BP 128/66
[2019-05-12 04:56] VITALS: BP 151/72
[2019-05-12 07:45] VITALS: BP 133/64
[2019-05-12] MEDS: PANTOPRAZOLE SODIUM 40 MG/VIAL IVP SCH ×2 (09:00→20:17)
[2019-05-12] MEDS: DOCUSATE SODIUM 100 MG CAPSULE PO SCH ×2 (09:00→20:17)
[2019-05-12] MEDS: MetroNIDAZOLE 500 MG TABLET PO SCH ×3 (09:00→20:17)
[2019-05-12 11:51] VITALS: BP 166/70
[2019-05-12 15:54] VITALS: BP 132/63
[2019-05-12] MEDS: CefTRIAXone SODIUM 2 GM in DEXTROSE 5%-WATER 50 ML IV SCH (16:59)
[2019-05-12 19:45] VITALS: BP 126/64
[2019-05-13 00:10] VITALS: BP 146/65
[2019-05-13 04:33] VITALS: BP 105/67
[2019-05-13 07:58] VITALS: BP 140/64
[2019-05-13] MEDS: DOCUSATE SODIUM 100 MG CAPSULE PO SCH (08:22)
[2019-05-13] MEDS: MetroNIDAZOLE 500 MG TABLET PO SCH (08:22)
[2019-05-13] MEDS: PANTOPRAZOLE SODIUM 40 MG/VIAL IVP SCH (08:22)
[2019-05-13 11:34] VITALS: BP 118/60
== END 2019-05-13 14:25 | DRG 720 ==
LOC: EMS 19:18 → 5S 04-26 01:52
PROVIDERS: ADMIT Internal Medicine; ATTEND Internal Medicine
PROC: 0F913ZZ Drainage of Right Lobe Liver, Percutaneous Approach (ICD-10-PCS; 2019-05-02)
PROC: 30233N1 Transfusion of Nonautologous Red Blood Cells into Peripheral Vein, Percutaneous Approach (ICD-10-PCS; 2019-05-08)
PROC: 0DB68ZX Excision of Stomach, Via Natural or Artificial Opening Endoscopic, Diagnostic (ICD-10-PCS; principal; 2019-05-08 13:00)
PROC: 30233N1 Transfusion of Nonautologous Red Blood Cells into Peripheral Vein, Percutaneous Approach (ICD-10-PCS; 2019-05-09)
DX: A41.9 Sepsis, unspecified organism (principal); G93.41 Metabolic encephalopathy; K75.0 Abscess of liver; N17.9 Acute kidney failure, unspecified; K92.2 Gastrointestinal hemorrhage, unspecified; E87.0 Hyperosmolality and hypernatremia; E86.0 Dehydration; E87.6 Hypokalemia; B96.20 Unspecified Escherichia coli [E. coli] as the cause of diseases classified elsewhere; B95.4 Other streptococcus as the cause of diseases classified elsewhere; K20.9 Esophagitis, unspecified; I10 Essential (primary) hypertension; K22.8 Other specified diseases of esophagus; K80.20 Calculus of gallbladder without cholecystitis without obstruction; N39.0 Urinary tract infection, site not specified; I69.354 Hemiplegia and hemiparesis following cerebral infarction affecting left non-dominant side; G80.9 Cerebral palsy, unspecified; N40.0 Benign prostatic hyperplasia without lower urinary tract symptoms; D64.9 Anemia, unspecified; E66.9 Obesity, unspecified; Z68.39 Body mass index [BMI] 39.0-39.9, adult; Z99.3 Dependence on wheelchair
CPT/HCPCS: 49405; 51702; 70450; 71260; 72193; 74160; 74177; 82271; 83605; 84145; 85014; 85018; 86753; 86850; 86900; 86901; 86920; 87040; 87070; 87205; 87324; 87449; 87804; 87899; 88305; 88312; 88313; 92526; 92610; 93005; 94640; 96365; 96367; 97112; 97163; 97167; 97530; 97535; C9113; G0378; J0690; J0696; J1644; J2250; J2270; J2405; J2543; J2704; J3010; J3370; J3490; J7030; J7040; J7050; J7060; J7120; P9016

== ENCOUNTER → 2019-05-24 | Outpatient (CLI) | payer OTHER ==
[~2019-05-24] MED LIST changes: -BP MEDS; +CEFX1I IV; -DIAZ5TAB4 PO; -FAMO-136 PO; +METR500 PO; -OXYC-530 PO
== END | disposition home or self-care (01) ==
LOC: RADMN 08:38
PROVIDERS: ATTEND Family Medicine
DX: K75.0 Abscess of liver (principal); J98.11 Atelectasis; I51.7 Cardiomegaly; K80.20 Calculus of gallbladder without cholecystitis without obstruction; K76.89 Other specified diseases of liver
CPT/HCPCS: 74150